=== PATIENT | female | born 1985 | race Caucasian/White ===

== ENCOUNTER → 2020-03-07 | Outpatient (CLI) | payer OTHER ==
[~2020-03-07] MED LIST: AMOXIL500 MG PO; IBU800 MG PO; IBUPROFEN 30 M800 MG; PRENATAL VITAMI1 TAB PO; ZOFRAN4 MG PO
== END | disposition home or self-care (01) ==
LOC: US 13:30
DX: Z34.82 Encounter for supervision of other normal pregnancy, second trimester (principal); Z3A.13 13 weeks gestation of pregnancy

== ENCOUNTER → 2020-08-24 | Outpatient (CLI) | payer OTHER | END | disposition home or self-care (01) | LOC: COVID19 13:42 | PROVIDERS: ATTEND Obstetrics & Gynecology | DX: Z34.83 Encounter for supervision of other normal pregnancy, third trimester (principal); Z20.822 Contact with and (suspected) exposure to COVID-19; Z3A.38 38 weeks gestation of pregnancy ==

== ENCOUNTER 2023-08-18 09:22 | Emergency (ER) | payer OTHER ==
[~2023-08-18] VITALS: Wt 68.0 kg
[2023-08-18] MEDS ORDERED: VIBRA-TAB100 MG PO (09:40)
== END 2023-08-18 10:09 | disposition home or self-care (01) ==
LOC: ED 09:22
DX: L03.115 Cellulitis of right lower limb (principal); T25.021A Burn of unspecified degree of right foot, initial encounter; Z88.2 Allergy status to sulfonamides; Z98.890 Other specified postprocedural states; T31.0 Burns involving less than 10% of body surface; X08.8XXA Exposure to other specified smoke, fire and flames, initial encounter; Y93.89 Activity, other specified; Y92.89 Other specified places as the place of occurrence of the external cause; Y99.8 Other external cause status

== ENCOUNTER → 2023-08-21 | Outpatient (CLI) | payer OTHER ==
[~2023-08-21] MED LIST changes: +VIBRA-TAB100 MG PO
== END | disposition home or self-care (01) ==
LOC: WOUNDCARE 01:54
PROVIDERS: ATTEND Nurse Practitioner Family
DX: T25.221A Burn of second degree of right foot, initial encounter (principal); T31.0 Burns involving less than 10% of body surface; T81.30XA Disruption of wound, unspecified, initial encounter; L03.115 Cellulitis of right lower limb; X08.8XXA Exposure to other specified smoke, fire and flames, initial encounter; Y93.89 Activity, other specified; Y92.89 Other specified places as the place of occurrence of the external cause; Y99.8 Other external cause status; Y83.8 Other surgical procedures as the cause of abnormal reaction of the patient, or of later complication, without mention of misadventure at the time of the procedure

== ENCOUNTER 2024-03-30 00:59 | Emergency (ER) | payer OTHER ==
[~2024-03-30] VITALS: Ht 162.5 cm; Wt 63.5 kg
[2024-03-30] MEDS ORDERED: NAPROXEN250 MG PO (02:12)
== END 2024-03-30 02:23 | disposition home or self-care (01) ==
LOC: ED 00:59
DX: S60.222A Contusion of left hand, initial encounter (principal); M25.512 Pain in left shoulder; M70.22 Olecranon bursitis, left elbow; Z88.2 Allergy status to sulfonamides; Z98.890 Other specified postprocedural states; W18.09XA Striking against other object with subsequent fall, initial encounter; Y93.89 Activity, other specified; Y92.89 Other specified places as the place of occurrence of the external cause; Y99.8 Other external cause status

== ENCOUNTER 2025-02-07 00:14 | Emergency (ER) | payer OTHER ==
[~2025-02-07] VITALS: Ht 165.1 cm; Wt 66.7 kg
[~2025-02-07 00:14] MED LIST changes: +NAPROXEN250 MG PO
[2025-02-07] MEDS ORDERED: HYDROCODONE-AC1 EAC1 PO (01:23)
== END 2025-02-07 01:29 | disposition home or self-care (01) ==
LOC: ED 00:14
DX: S22.31XA Fracture of one rib, right side, initial encounter for closed fracture (principal); Z88.2 Allergy status to sulfonamides; Z79.899 Other long term (current) drug therapy; Z98.890 Other specified postprocedural states; V93.39XA Fall on board unspecified watercraft, initial encounter; Y93.89 Activity, other specified; Y92.89 Other specified places as the place of occurrence of the external cause; Y99.8 Other external cause status